=== PATIENT | male | born 1950 | race Caucasian/White ===

== ENCOUNTER 2017-11-15 11:11 | Day surgery (SDC) | payer OTHER ==
[2017-11-14 12:06] LABS: Absolute Lymphocytes (CBC) 2.8 K/uL (0.7-4.9); Absolute Monocytes 0.4 K/uL (0.1-1.3); Absolute Neutrophil 4.5 K/uL (1.8-8.0); Basophils % 0.6 % (0-1.3); Eosinophils % 1.4 % (0-4.4); Hematocrit 44.2 % (39.6-49.0); Lymphocytes % 35.5 % (15.3-44.8); MCH 31.8 pg (27.0-35.0); MCV 92.4 fL (80-100); MPV 11.1 fL (7.6-11.3); Monocytes % 5.2 % (3.3-12.3); RBC Red Blood Cell Count 4.78 M/uL (4.33-5.43)
[2017-11-14 12:15] LABS: Urine Appearance CLEAR; Urine Bilirubin NEGATIVE (NEG); Urine Blood NEGATIVE (NEG); Urine Color YELLOW; Urine Glucose 3+ (NEG); Urine Protein NEGATIVE (NEG); Urine Specific Gravity 1.025 (1.005-1.030); Urine Urobilinogen 0.2 mg/dL (0.2-1.0)
[2017-11-14 12:18] LABS: Protime INR 1.02
[2017-11-14 12:21] LABS: Phosphorus 2.3 mg/dL (2.5-4.9); Potassium 4.2 mmol/L (3.5-5.1)
[2017-11-14 12:51] LABS: Urine Microscopic Reflex NO UMIC
--- NOTE | 2017-11-15 06:50 | EKG ---
Test Date: 2017-11-14 Test Time: 10:22:55 Sleeve Sewer: ROXANNA MEASUREMENT RESULTS: Intervals: Rate: 62 HI: 156 QRSD: 116 QT: 402 QTc: 408 [place]: P: 41 HI: 156 QRS: 2 T: 58 INTERPRETIVE STATEMENTS: Normal sinus rhythm Normal ECG Compared to ECG 04/28/2017 16:18:59 No significant changes Electronically Signed On 11-15-17 06:49:53 CDT by Matthew Murphy
[~2017-11-15 11:11] MED LIST: GENTAMICIN 100 MG/100 ML BAG 100 MG/100 ML BAG IV SCH
[2017-11-15] MEDS ORDERED: GENTAMICIN 100 MG/100 ML BAG 100 MG/100 ML BAG IV ONE (12:01)
[2017-11-15] MEDS ORDERED: NA CHLORIDE 0.9% 1,000 ML ONE (12:01)
--- NOTE | 2017-11-15 12:26 | RAD REPORT ---
EXAM DESCRIPTION: RAD - Abdomen 1 View (KUB) - 11/15/2017 12:02 pm CLINICAL HISTORY: Renal calculi. Pain COMPARISON: Abdomen 1 View (KUB) dated 11/03/2017; Abdomen 1 View (KUB) dated 08/03/2017; Abdomen 1 Vi ew (KUB) dated 05/09/2017; Abdomen 1 View (KUB) dated 04/21/2017 FINDINGS: The bowel gas pattern is non-obstructive. No evidence of free air or pneumatosis. Multiple small calculi are present inferior left kidney. Mild bilateral hip osteoarthritis. Small phleboliths in the pelvis. IMPRESSION: Multiple small stones are present inferior left kidney.
[2017-11-15] MEDS ORDERED: FENTANYL CITR 100 MCG/2 ML ONE (13:08)
[2017-11-15] MEDS ORDERED: LIDOCAINE 1% MPF 5 ML VIAL ONE (13:08)
[2017-11-15] MEDS ORDERED: MIDAZOLAM HCL 2 MG/2 ML INJ ONE (13:08)
[2017-11-15] MEDS ORDERED: PROPOFOL 200 MG/20 ML VIAL IV ONE (13:08)
[2017-11-15] MEDS ORDERED: ONDANSETRON 4 MG/2 ML VIAL ONE (13:45)
[2017-11-15] MEDS ORDERED: GLYCOPYRROLATE 0.2 MG/ML SYR ONE (13:45)
[2017-11-15] MEDS ORDERED: EPHEDRINE SULF 50 MG/10 ML SYR ONE (13:53)
== END 2017-11-15 15:30 | disposition home or self-care (01) ==
LOC: OR 11:11
PROVIDERS: ATTEND Urology
PROC: 0TF4XZZ Fragmentation in Left Kidney Pelvis, External Approach (ICD-10-PCS; principal; 2017-11-15 13:45)
DX: N20.0 Calculus of kidney (principal); I10 Essential (primary) hypertension; E11.9 Type 2 diabetes mellitus without complications; Z87.891 Personal history of nicotine dependence
CPT/HCPCS: 00872; 36415; 50590; 74018; 80048; 81003; 82962; 84100; 84550; 85025; 85610; 85730; 87086; 87088; 93005; J1580; J2250; J2405; J3010; J7030

== ENCOUNTER → 2024-06-19 | Day surgery (SDC) | payer OTHER ==
[2024-06-05 09:43] LABS: Absolute Eosinophils 0.2 K/uL (0-0.5); Absolute Lymphocytes (CBC) 2.1 K/uL (0.7-4.9); Absolute Monocytes 0.5 K/uL (0.1-1.3); Absolute Neutrophil 5.5 K/uL (1.8-8.0); Basophils % 0.4 % (0-1.3); Eosinophils % 2.2 % (0-4.4); Hematocrit 40.9 % (39.6-49.0); Hemoglobin 14.1 g/dL (13.6-17.9); Lymphocytes % 25.2 % (15.3-44.8); MCH 31.7 pg (27.0-35.0); MCHC 34.4 g/dL (32.0-36.0); MCV 91.9 fL (80-100); MPV 9.1 fL (7.6-11.3); Monocytes % 6.2 % (3.3-12.3); Platelets 225 thou/uL (152-406); RBC Red Blood Cell Count 4.44 M/uL (4.33-5.43); Red Cell Distribution Width 14.3 % (12.1-15.2)
[2024-06-05 09:56] LABS: PT Prothrombin Time 12.2 SECONDS (10.0-13.0); PTT, Activated Partial Thromb 33.9 SECONDS (24.3-36.9); Protime INR 1.07
[2024-06-05 10:04] LABS: Anion Gap 6.9 mEq/L (5.0-15.0); Potassium 3.9 mEq/L (3.5-5.1)
--- NOTE | 2024-06-05 10:18 | RAD REPORT ---
EXAM: Chest Pa And Lat (2 Views) HISTORY: 74 years Male Pre-op pending urolift COMPARISON: None. FINDINGS: LUNGS/PLEURA: The lungs are clear. No pleural effusions or pneumothorax. No pulmonary edema. CARDIAC/MEDIASTINUM: The cardiac silhouette is within normal limits. UPPER ABDOMEN: No significant abnormality. BONES: No acute abnormality. LINES/TUBES/OTHER: N/A IMPRESSION: No evidence of acute cardiopulmonary disease.
--- NOTE | 2024-06-07 16:54 | EKG ---
Test Date: 2024-06-05 Test Time: 10:23:32 Director Of Research And Development: TONI MEASUREMENT RESULTS: Intervals: Rate: 64 W[place]: 162 QRSD: 152 QT: 420 QTc: 433 [place]: P: 65 WV: 162 QRS: 29 T: 60 INTERPRETIVE STATEMENTS: Normal sinus rhythm Right bundle branch block Abnormal ECG Compared to ECG 11/14/2017 10:22:55 Right bundle-branch block now present Electronically Signed On 06-07-24 16:46:58 SHOW HOST OR HOSTESS by Yonny Jama
[~2024-06-19] MED LIST changes: +CODEINE 30MG/APAP 300MG TAB PO PRN; +EPHEDRINE SULF 50 MG/ML VIAL ONE; +FENTANYL CITR 100 MCG/2 ML ONE; -GENTAMICIN 100 MG/100 ML BAG 100 MG/100 ML BAG IV SCH; +LIDOCAINE 1% MPF 5 ML VIAL ONE; +ONDANSETRON 4 MG/2 ML VIAL ONE; +PHENAZOPYRIDINE 100MG TAB PO ONE; +dexAMETHasone 10 MG/ML VIAL ONE; +propofoL 200 MG/20 ML VIAL IV ONE
[2024-06-19] MEDS: NA CHLORIDE 0.9% 1,000 ML ONE (06:55)
[2024-06-19] MEDS: CEFAZOLIN SODIUM 2 GM/VIAL ONE (07:26)
[2024-06-19] MEDS: HYDROMORPHONE HCL 1 MG/ML INJ ONE (08:40)
[2024-06-19 10:24] VITALS: BP 126/71; TEMP 97.8; O2SAT 98
--- NOTE | 2024-06-19 11:58 | P.OP ---
Date of Service: 06/19/24 Preoperative diagnoses: BPH with lower urinary tract obstruction and symptoms Postoperative diagnoses: BPH with lower urinary tract obstruction and symptoms Principal procedures: Prostatic urethral lift/UroLift with 7 implants placed Insertion of 18 [place]ese urethral Calderon catheter Indication for procedure: 74-year-old gentleman with obstructive LUTS due to BPH refractory to maximal alpha-javier therapy. He was counseled on options for further management and elected to proceed with UroLift. Procedure note: The patient was consented in the preoperative holding area before being transferred to the operative suite where general anesthesia was induced. He was given Ancef 2 g IV antimicrobial prophylaxis, and pneumoboots were provided for DVT prophylaxis. He was placed in the lithotomy position, padded and secured to the table appropriately. His genitalia was prepped with Hibiclens and he was draped in standard fashion. The case has begun using the 20 [place]ese UroLift sheath and a visual obturator to traverse the urethra and into the bladder with relative ease. There was lateral lobar hypertrophy with slight right lateral to median lobar intrusion within the prostatic urethra but no significant intravesical projection. As a result, I decompressed his bladder of fluid and urine and then switched the visual obturator for the first implant delivery device and then implant. I then targeted the patient's left lateral wall at approximately the 4 o'clock position angled superior laterally in order to grasp a nodule of BPH in that location. This tissue was targeted about 1.5 to 2 cm distal to the bladder neck opening and I angled against the tissue about 15 degrees before pulling the trigger the first time delivering the needle through the substance of the prostate. I then compressed the tissue and additional 15 degrees in order to ensure the needle situated outside of the capsule before pulling the trigger a second time to deployed the capsular tab and partially retract the needle. A third pole of the trigger did completely retract the needle and tension the suture. I then advanced the scope back toward the midline and 2 to 3 mm toward the bladder neck opening until the white line of the monofilament was centered in the delivery bay. At this point, I pulled the trigger a fourth time delivering the urethral end piece which did nicely lateralized the tissue in that location. I then advanced the scope back into the patient's bladder and switch the delivery device for new implant. This implant was then targeted in the contralateral position and the right lateral wall at around the 8 to 9 o'clock position, again to lateralized the tissue and grasp some of that median lobar component. After proceeding through the steps outlined above, that implant was successfully placed and did lateralize and open up the tissue at the bladder neck. I then surveyed the channel created and there was residual kissing lateral lobe hypertrophy emanating from the apical mid gland; so a third and a fourth implant were placed on the patient's left and the right apex, respectively, at the level of the verumontanum at the 3:00 and 9:00 positions respectively. Again, surveying the channel created, there was residual kissing lateral lobar hypertrophy in the mid zone of the prostate, though the beginnings of a continuous channel were able to be seen. However, for durability of the success of the procedure, I elected to place an additional implant in the mid zone tissue on the left and a 6th implant in the mid zone tissue on the right. This did beautifully open up the prostate fossa, but the channel was slight deviated from left to right from the bladder neck to the apex owing to a degree of residual anterior tissue emanating from the right side. As a result, I placed a 7th implant into that tissue stacking it above the sixth implant and beautifully elevating the channel in that location and creating a beautiful continuous anterior channel with only a slight degree of mid base urethral intrusion coming from the inferior lateral aspect of the right inferior lateral aspect of the right Morteza prostate in the mid base region, obscuring the channel by approximately 20%, though the channel was completely patent more distally and at the bladder neck otherwise. As a result, I did not elect to place any additional implants; so because there was a slight degree of hematuria emanating from the prostate, I placed an 18 [place]ese Calderon catheter via his urethra into his bladder with ease and placed about 15 cc of sterile water in the balloon. He was then taken out of the lithotomy position, awakened from general anesthesia, transferred to a stretcher, and then transferred to the recovery room in good condition. Complications: None Discharge disposition: He will be standard UroLift follow-up pathway with plan follow-up in about 1 month's time.
== END | disposition home or self-care (01) ==
LOC: OR 06:17
PROVIDERS: ATTEND Urology
PROC: 0T7D8DZ Dilation of Urethra with Intraluminal Device, Via Natural or Artificial Opening Endoscopic (ICD-10-PCS; principal; 2024-06-19 07:30)
DX: N40.1 Benign prostatic hyperplasia with lower urinary tract symptoms (principal)
CPT/HCPCS: 93005; 87088; 85025; 87086; 80048; 36415; 85610; 82947 ×2; 85730; 71046; 52441; 52442 ×6; J2704; J2003; J3010; J1100; J1171; J2405; J7030